=== PATIENT | male | born 1965 | race Caucasian/White ===

== ENCOUNTER 2017-10-06 22:39 | Emergency (ER) | payer SELFPAY ==
[~2017-10-06] VITALS: Ht 190.5 cm; Wt 111.1 kg
[2017-10-06] MEDS ORDERED: ATOR20TA66 PO (22:58)
[2017-10-06] MEDS ORDERED: GLIP5TAB13 PO (22:58)
[2017-10-06] MEDS ORDERED: METF500T4 PO (22:58)
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
[2017-10-07] MEDS ORDERED: ACHD5005 PO (00:15)
[2017-10-07] MEDS ORDERED: CYCL10TA9 PO (00:15)
[2017-10-07 00:19] VITALS: BP 128/73
--- NOTE | 2017-10-07 07:13 | Diagnostic Imaging Report ---
INDICATION: Low back pain Lumbar spine AP and lateral views of the lumbar spine show mild spondylosis. Alignment is normal. There are no compression fractures. IMPRESSION: Spondylosis deformans of the lumbar spine. No acute abnormality seen. Dictated by: Dictated on workstation # [id number]
== END 2017-10-07 00:19 | disposition home or self-care (01) ==
LOC: EDUNIT# 22:39 → ER 22:44
DX: S13.4XXA Sprain of ligaments of cervical spine, initial encounter (principal); M54.5 Low back pain; E11.9 Type 2 diabetes mellitus without complications; Z79.84 Long term (current) use of oral hypoglycemic drugs; V49.40XA Driver injured in collision with unspecified motor vehicles in traffic accident, initial encounter
CPT/HCPCS: 72100; 99282